=== PATIENT | female | born 1955 | race African-American/Black ===

== ENCOUNTER 2017-03-04 17:25 | Emergency (ER) | payer OTHER ==
[~2017-03-04] VITALS: Ht 170.2 cm; Wt 54.4 kg
--- NOTE | ~2017-03-04 | EKG ---
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1955 Requested By: Marcelo Toribio Order Number: [id number] MD: Harpreet Timmons Measurements Intervals [place] Rate: 120 P: 72 NM: 162 QRS: 70 QRSD: 73 T: 68 QT: 293 QTc: 414 Interpretive Statements Sinus tachycardia Inferolateral infarct, acute Baseline wander in lead(s) I,III,aVL,V1,V2,V3,V4 Compared to ECG 04/13/2013 16:50:04 injury pattern is now noted Electronically Signed On 03-05-2017 9:26:28 CDT by Harpreet Timmons [email or web address] <ELECTRONICALLY SIGNED> By: Harpreet Timmons MD, [facility] 03/05/17 0926 1749 1749 Harpreet Timmons MD, [facility] /EPI
[~2017-03-04 17:25] MED LIST: ASPIRIN325 PO; CARVEDILOL12.5 MG PO; CARVEDILOL6.25 MG PO; HYDROCHLOROTH12.5 MG PO; HYDROCHLOROTHIA25 M1 PO; K-DUR 20 MEQ T20 MEQ PO; LABETALOL 100100 MG PO; LIPITOR20 MG PO; LISINOPRIL40 MG PO; NORVASC 5 MG TAB5 MG PO; POTASSIUM20 PO; PRINIVIL20 MG PO; VICODIN 5-5001 EACH PO; VITAMIN D400 UNI1; ZANTAC 150MG T150 M1 PO; ZOCOR 20 MG TAB20 M1 PO
[2017-03-04 18:36] LABS: HEMOGLOBIN 8.3 gm/dL (12.0-15.0); MCH 30.9 pg (26.0-34.0); MCHC 34.5 g/dL (28.0-37.0); MCV 89.6 fL (80.0-100.0); RBC 2.68 mil/uL (4.20-5.00); RDW 20.5 % (10.5-14.5); WBC 25.5 thou/uL (4.0-11.0)
[2017-03-04 18:43] LABS: CALCIUM 9.7 mg/dL (8.5-10.1); CREATININE 2.7 mg/dL (0.6-1.0); POTASSIUM 4.5 mmol/L (3.5-5.1)
[2017-03-04 18:53] LABS: FIBRINOGEN 328.2 mg/dL (210-360); TROPONIN-I 17.82 ng/mL (<0.04-0.07)
[2017-03-04 18:56] LABS: POC CA IONIZED 4.7 mg/dL (4.5-5.3); POC CREATININE 2.6 mg/dL (0.6-1.3); POC HEMOGLOBIN 9.2 g/dL (12.0-15.0); POC POTASSIUM 4.2 mmol/L (3.5-5.1)
[2017-03-04 18:58] LABS: ALBUMIN 3.1 g/dL (3.4-5.0); DIRECT BILIRUBIN 0.2 mg/dL (<0.1-0.3); TOTAL BILIRUBIN 7.4 mg/dL (<0.1-1.0); TOTAL PROTEIN 7.1 g/dL (6.4-8.2)
== END 2017-03-04 18:23 ==
LOC: ER 17:25
PROVIDERS: Emergency Medicine
DX: I46.9 Cardiac arrest, cause unspecified (principal); I10 Essential (primary) hypertension; G89.29 Other chronic pain; M54.9 Dorsalgia, unspecified; K21.9 Gastro-esophageal reflux disease without esophagitis; E78.5 Hyperlipidemia, unspecified; I72.9 Aneurysm of unspecified site; F15.10 Other stimulant abuse, uncomplicated